=== PATIENT | male | born 1985 | race Caucasian/White ===

== ENCOUNTER 2016-07-22 04:12 | Emergency (ER) | payer BC, OTHER ==
[~2016-07-22] VITALS: Ht 160 cm; Wt 65.0 kg
[2016-07-22 05:20] VITALS: Ht 160 cm; Wt 65.0 kg
--- NOTE | 2016-07-22 05:45 | PSY ---
Date/Time of Note Date/Time of Note DATE: 07/22/16 TIME: 05:44 Psychiatric Subjective Eval Consent Pt consented to telemedicine: Yes Subjective Evaluation Patient location: emergency Chief Complaint: TOOK 30 KLONIPIN, 4 VICODIN, 6 BEERS TONIGNT- S/I Reason for consult: SUICIDE ATTEMPT THIS EVENING Social History Marital status: other Occupation/Senior Living: [employer] Assessment Additional comments: IDENTIFYING INFORMATION: 33 year old Male patient who is currently located at the hospital and for whom psychiatric consultation was requested. SOURCES OF INFORMATION: The patient who appears to be unreliable and the medical records; the nursing staff. CHIEF COMPLAINT: "I tried to OD". HISTORY OF PRESENT ILLNESS: The patient was interviewed via telemedicine in the presence of and under the supervision of nursing staff of the hospital. The consent to conducting this interview via telemedicine was obtained by the nursing staff at the hospital. AQUILES Arechiga reports that the patient was brought in by the police/fire department and admitted to having to taking 30 tabs of clonazepam, 5 tablets of vicodin and 6 beers in an attempt to hurt himself. Patient has been noncooperative with the staff, refused to have his labs drawn, and demands to get a coating mixer. He reports that the staff members are liars and does not want to talk to me unless he is completely alone. In the end, he agreed to talk in the presence of a staff member. The patient reports that he is done living and wanted to kill himself by taking 20 tablets of klonopin, 5 tablets of vicodin and pain killers earlier tonight. Admits to persistent depression since 9 months ago, admits to losing 80 lbs due to low appetite, insomnia, fatigue, hopelessness, helplessness, anhedonia. Admits to sts having AH and VH of his . Reports that he quit from his job. Admits to vague paranoia. The patient reports drinking alcohol occasionally; reports drinking only 5 times since 5 months ago. Last drink was tonight. H/o alcohol withdrawal seizures. The patient denies using alcohol heavily or regularly. The patient reports using MJ. The patient denies using any other substances. In terms of past psychiatric history, the patient reports having a history of past psychiatric hospitalizations for OCD, PTSD, BPAD. The patient reports having a history of multiple past suicide attempts. PAST MEDICAL HISTORY: nephrolithiasis, kidney failure. CURRENT MEDICATIONS: none. ALLERGIES TO MEDICATIONS: NKDA. SOCIAL HISTORY: lives alone, , has 1 daughter. LABORATORY TESTS: pending; pt refused. REVIEW OF SYSTEMS: Constitutional (e.g., fever, weight loss): negative; Eyes, Ears, Nose, Mouth, Throat: negative; Cardiovascular: negative; Respiratory: negative; Gastrointestinal: negative; Genitourinary: + kidney pain; Musculoskeletal: negative; Integumentary (skin and/or breast): negative; Neurological: negative; Psychiatric: as per HPI; Endocrine: negative; Hematologic/Lymphatic: negative; Allergic/Immunologic: negative. MENTAL STATUS EXAMINATION: General Appearance and Behavior: somewhat irritable, partially cooperative with the interview, pleasant at times, distant at other times with the current interviewer, makes fair eye contact, fairly groomed, no abnormal movements noted. Speech: Regular rate, regular rhythm, normal latency, normal volume, normal amount. Flow of thought: sequential, logical, goal-directed. Content of thought: no auditory hallucinations, no visual hallucinations, no clear delusions were elicited the patient is very suspicious with staff, positive for suicidal ideation; no homicidal ideation. Mood: "depressed". Affect: dysthymic, dysphoric, not reactive. Attention: normal based on the interview. Insight: fair. Judgment: poor. Memory: normal based on the interview. Sensorium: alert and oriented to person, place, Jul, 2014 or 2015. ASSESSMENT: The patient's presentation and history are consistent with the diagnosis of unspecified depressive disorder, alcohol use disorder. Pt presents in a major depressive episode after a suicide attempt. [place] I: unspecified depressive disorder, alcohol use disorder. [place] II: Deferred. [place] III: see PMH. [place] IV: social stressors. [place] V: GAF: 20. PLAN: - Medication management: Would recommend starting alcohol withdrawal protocol per CIWA. Would also consider administering thiamine, folic acid, multivitamin. Would start haloperidol 2.5 mg IM PRN severe agitation q4 hours. Would start lorazepam 2 mg IM PRN severe agitation q4 hours Will defer to the inpatient psychiatry team for other medication changes. - Labs: please check CBC, CMP, UDS, alcohol level. - Psychotherapy: Provided supportive psychotherapy and psychoeducation. - Disposition: Would recommend involuntary admission to the inpatient psychiatric unit given the severity of the patient's psychiatric condition and the fact that the patient is an imminent danger to self and/or others so long as the patient has been cleared medically for admission to psychiatry. Inpatient psychiatric admission is at this time the least restrictive environment where the patient can receive the psychiatric care that is needed. Would place on suicide precautions. The patient fulfills criteria for being placed on involuntary hold due to being a danger to self. Discussed about the above plan with Dr. Armstrong. SYDNEY CARRILLO MD July 22, 2016 05:45
[2016-07-22] MEDS ORDERED: LORAZEPAM 2 MG INJ IM ONE ×2 (06:00→15:30)
[2016-07-22] MEDS ORDERED: HALOPERIDOL 5 MG INJ IM ONE ×2 (06:00→16:00)
[2016-07-22] MEDS ORDERED: DIPHENHYDRAMINE 50 MG INJ IM ONE ×2 (06:00→16:00)
--- NOTE | 2016-07-22 06:12 | ERA ---
ER Documentation Chief Complaint Date/Time DATE: 07/22/16 TIME: 06:09 Chief Complaint Suicidal HPI The patient is a 33-year-old male, presenting to the ER because of suicidal ideation. He took Klonopin, Vicodin, and been drinking tonight. He is very agitated in the ER. 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 Allergies Allergies: Coded Allergies: No Known Allergy (Unverified , 07/22/16) PMhx/Soc Medical and Surgical Hx: pt denies Surgical Hx Hx Psychiatric Problems: Yes (ANXIETY/PTSD) Hx Miscellaneous Medical Probl: Yes (KIDNEY STONES) Hx Alcohol Use: Yes (6 BEERS TONIGHT) Hx Substance Use: Yes (KLONIPIN AND MARIJUANA) Smoking Status: Unknown if ever smoked Physical Exam Vitals Vital Signs Date Time Temp Pulse Resp B/P Pulse Ox O2 Delivery O2 Flow Rate FiO2 07/22/16 05:20 127 21 130/98 98 Physical Exam Const: No acute distress. Head: Atraumatic. Eyes: Normal Conjunctiva. ENT: Normal External Ears, Nose and Mouth. Neck: Full range of motion. No meningismus. Resp: Clear to auscultation bilaterally. Cardio: Regular rate and rhythm, no murmurs. Abd: Soft, non distended, normal bowel sounds, non tender. Skin: No petechiae or rashes. Back: No midline or flank tenderness. Ext: No cyanosis, or edema. Neur: Awake and alert. No focal deficit Psych: Agitated, psychotic, suicidal Results 24 hrs Current Medications Medications (Trade) Dose Ordered Sig/Marcie Route PRN Reason Start Time Stop Time Status Last Admin Dose Admin Haloperidol (Haldol) 2 mg ONCE ONCE IM 07/22/16 06:00 07/22/16 06:01 DC 07/22/16 06:08 Lorazepam (Ativan) 2 mg ONCE ONCE IM 07/22/16 06:00 07/22/16 06:01 DC 07/22/16 06:08 Diphenhydramine HCl (Benadryl) 50 mg ONCE ONCE IM 07/22/16 06:00 07/22/16 06:01 DC 07/22/16 06:08 Procedures/MDM MEDICAL MAKING DECISION: The patient is a 33-year-old male, presenting with acute suicidal, acute psychosis. He did not respond to counseling, he was therefore treated with Ativan 2 mg IM, and 20.5 mg IM, Benadryl 50 mg IM with good response The differential diagnoses considered include but are not limited to psychosis, drug-induced psychosis, decompensated psychiatric illness Departure Diagnosis: Primary Impression: Suicidal ideation Additional Impression: Substance abuse Condition: Stable Comments He was evaluated by telepsychiatrist who put him on 5150 hold Labs are pending because patient declined blood test The patient's blood pressure was elevated (>120/80) but appears stable without evidence of hypertension emergency or urgency. The patient was counseled about the risks of hypertension and urged to pursue outpatient monitoring and therapy within a week with their primary care physician. DEYSI GRAFF MD July 22, 2016 06:12
[2016-07-22 06:43] LABS: ADD SCAN DIFF NO; BASOPHILS % 0.3 % (0.0-2.0); EOSINOPHILS # 0.1 10^3/ul (0.0-0.5); EOSINOPHILS % 1.5 % (0.0-7.0); HEMATOCRIT 39.5 % (42.0-52.0); HEMOGLOBIN 13.5 g/dl (14.0-18.0); LYMPHOCYTES # 2.9 10^3/ul (0.8-2.9); LYMPHOCYTES % 43.2 % (15.0-51.0); MEAN CORPUSCULAR HEMOGLOBIN 31.8 pg (29.0-33.0); MEAN CORPUSCULAR HGB CONC 34.2 g/dl (32.0-37.0); MEAN CORPUSCULAR VOLUME 92.9 fl (82.0-101.0); MEAN PLATELET VOLUME 8.6 fl (7.4-10.4); MONOCYTE # 0.4 10^3/ul (0.3-0.9); MONOCYTES % 5.9 % (0.0-11.0); NEUTROPHIL # 3.2 10^3/ul (1.6-7.5); NEUTROPHILS % 48.9 % (39.0-77.0); PLATELET COUNT 292 10^3/UL (140-415); RED BLOOD COUNT 4.25 10^6/ul (4.70-6.10); RED CELL DISTRIBUTION WIDTH 11.9 % (11.5-14.5); WHITE BLOOD COUNT 6.6 10^3/ul (4.8-10.8)
[2016-07-22 07:02] LABS: ALANINE AMINOTRANSFERASE 25 IU/L (13-69); ALBUMIN 4.1 g/dl (3.3-4.9); ALBUMIN/GLOBULIN RATIO 1.57; ALKALINE PHOSPHATASE 44 IU/L (42-121); ANION GAP 15 (8-16); ASPARTATE AMINO TRANSFERASE 18 IU/L (15-46); BILIRUBIN,INDIRECT 0.3 mg/dl (0-1.1); BILIRUBIN,TOTAL 0.3 mg/dl (0.2-1.3); BLOOD UREA NITROGEN 9 mg/dl (7-20); CALCIUM 9.3 mg/dl (8.4-10.2); CARBON DIOXIDE 25 mmol/L (21-31); CHLORIDE 106 mmol/L (97-110); CREATININE 0.64 mg/dl (0.61-1.24); GLUCOSE 86 mg/dl (70-220); POTASSIUM 3.7 mmol/L (3.5-5.1); SODIUM 142 mmol/L (135-144); TOTAL PROTEIN 6.7 g/dl (6.1-8.1)
[2016-07-22 07:18] LABS: ACETAMINOPHEN < 10.0 ug/ml (10.0-30.0); SALICYLATE < 1.0 mg/dl (5.0-30.0)
[2016-07-22 09:34] LABS: BARBITURATES NEGATIVE (NEGATIVE); BENZODIAZEPINES NEGATIVE (NEGATIVE); CANNABINOIDS POSITIVE (NEGATIVE); COCAINE NEGATIVE (NEGATIVE); OPIATES POSITIVE (NEGATIVE)
[2016-07-22 09:35] LABS: ADD UMIC NO; URINE BILIRUBIN (Dip) 1+ (NEGATIVE); URINE BLOOD (Dip) NEGATIVE (NEGATIVE); URINE COLOR YELLOW (YELLOW); URINE GLUCOSE (Dip) NEGATIVE (NEGATIVE); URINE KETONES (Dip) 15 (NEGATIVE); URINE LEUKOCYTE ESTERASE (Dip) NEGATIVE (NEGATIVE); URINE NITRITE (Dip) NEGATIVE (NEGATIVE); URINE TOTAL PROTEIN (Dip) NEGATIVE (NEGATIVE); URINE UROBILINOGEN (Dip) 0.2 E.U./dL (0.1-1.0)
[2016-07-22 09:50] LABS: ICTOTEST NEGATIVE (NEGATIVE)
[2016-07-22] MEDS ORDERED: LORAZEPAM 2 MG INJ ONE (15:14)
[2016-07-22 20:26] VITALS: BP 93/71; PULSE 90; RESP 18
== END 2016-07-22 21:23 ==
LOC: EDBD 04:12 → E/R 04:12
DX: F12.10 Cannabis abuse, uncomplicated (principal); F13.10 Sedative, hypnotic or anxiolytic abuse, uncomplicated; R45.851 Suicidal ideations
CPT/HCPCS: 80053; 80306; 80307; 81003; 85025; J1200; J1630; J2060; 36415; 96372